=== PATIENT | male | born 1950 | race Caucasian/White ===

== ENCOUNTER → 2020-11-01 | Outpatient (CLI) | payer OTHER | LOC: MRI 10:36 | PROVIDERS: ATTEND Registered Nurse | DX: Z01.89 Encounter for other specified special examinations (principal); M25.512 Pain in left shoulder ==

== ENCOUNTER 2021-01-24 09:55 | Inpatient (IN) | payer MEDICARE, OTHER ==
[~2021-01-24] VITALS: Ht 177.8 cm; Wt 95.3 kg
[2021-01-24] MEDS ORDERED: KETOROLAC TROMETHAMINE 30 MG/ML VIAL ONE (10:33)
[2021-01-24] MEDS ORDERED: KETOROLAC TROMETHAMINE 30 MG/ML VIAL IM ONE (11:00)
[2021-01-24] MEDS ORDERED: DIAZEPAM 5 MG TAB PO ONE ×2 (11:00→13:00)
[2021-01-24] MEDS ORDERED: HYDROCODONE/APAP 7.5MG-325MG 1 EA TAB PO ONE (11:00)
[2021-01-24 13:12] LABS: BASOPHILS # (AUTO) 0.1 (0.0-0.1); BASOPHILS % 0.7 % (0.0-1.0); EOSINOPHILS # (AUTO) 0.1 (0.0-0.4); EOSINOPHILS % 0.9 % (0.0-6.0); HEMATOCRIT 45.8 % (38.2-49.6); HEMOGLOBIN 14.7 g/dL (14.0-18.0); LYMPHOCYTES % 23.5 % (18.0-39.1); MEAN CORPUSCULAR HEMOGLOBIN 29.9 pg (28-32); MEAN CORPUSCULAR HGB CONC 32.1 g/dL (31-35); MEAN CORPUSCULAR VOLUME 93.1 fL (81-99); MONOCYTES # (AUTO) 0.8 (0.2-0.8); MONOCYTES % 9.7 % (4.4-11.3); NEUTROPHILS # (AUTO) 5.5 (2.1-6.9); NEUTROPHILS % 64.3 % (38.7-80.0); PLATELET COUNT 142 x10e3/uL (140-360); RED BLOOD COUNT 4.92 x10e6/uL (4.3-5.7); RED CELL DISTRIBUTION WIDTH 15.3 % (11.7-14.4)
[2021-01-24 13:22] LABS: INR 1.02; PROTHROMBIN TIME 13.6 seconds (11.9-14.5)
[2021-01-24 13:23] LABS: PARTIAL THROMBOPLASTIN TIME 28.2 seconds (23.8-35.5)
[2021-01-24 13:29] LABS: ALBUMIN 4.1 g/dL (3.5-5.0); ALBUMIN/GLOBULIN RATIO 1.3 (0.8-2.0); ANION GAP 15.2 mmol/L (8-16); CALCIUM 9.1 mg/dL (8.4-10.2); CREATININE, SERUM 1.15 mg/dL (0.72-1.25); POTASSIUM 4.2 mmol/L (3.5-5.1)
[2021-01-24 15:20] VITALS: BP 156/78
[2021-01-24] MEDS ORDERED: FERROUS SULFAT324 MG PO (16:38)
[2021-01-24] MEDS ORDERED: PRESERVISION A1 EACH PO (16:38)
[2021-01-24] MEDS ORDERED: AMLODIPINE BESYL5 MG PO (16:38)
[2021-01-24] MEDS ORDERED: ALLOPURINOL100 MG PO (16:38)
[2021-01-24] MEDS ORDERED: ATORVASTATIN CA10 MG PO (16:38)
[2021-01-24] MEDS ORDERED: OMEPRAZOLE40 MG PO (16:38)
[2021-01-24] MEDS ORDERED: FLOMAX0.4 MG PO (16:38)
[2021-01-24] MEDS ORDERED: CETIRIZINE HCL10 MG PO (16:38)
[2021-01-24] MEDS: SODIUM CHLORIDE 0.9% 1000ML 1,000 ML IV SCH (16:41)
[2021-01-24] MEDS: ONDANSETRON HCL INJ 2MG/ML 2ML 2 MG/ML VIAL IV PRN (18:18)
[2021-01-24] MEDS: Morphine 4mg Syringe 4 MG/ML INJ IV PRN (18:18)
[2021-01-24 20:00] VITALS: BP 138/84
[2021-01-24 20:15] VITALS: BP 138/84
[2021-01-24] MEDS: LACTULOSE SYRUP 20 GM/30 ML UDC PO PRN (21:38)
[2021-01-24] MEDS ORDERED: AMLODIPINE BESYLATE 5 MG TAB PO PRN (23:30)
[2021-01-25] VITALS (8 sets, daily range): BP systolic 122–150; BP diastolic 68–89
[2021-01-25] MEDS: SODIUM CHLORIDE 0.9% 1000ML 1,000 ML IV SCH ×4 (01:00→20:04)
[2021-01-25 05:44] LABS: BASOPHILS % 0.5 % (0.0-1.0); EOSINOPHILS # (AUTO) 0.1 (0.0-0.4); EOSINOPHILS % 0.9 % (0.0-6.0); HEMATOCRIT 41.3 % (38.2-49.6); LYMPHOCYTES # (AUTO) 1.4 (1.0-3.2); LYMPHOCYTES % 21.4 % (18.0-39.1); MEAN CORPUSCULAR HEMOGLOBIN 30.1 pg (28-32); MEAN CORPUSCULAR HGB CONC 31.5 g/dL (31-35); MEAN CORPUSCULAR VOLUME 95.6 fL (81-99); MONOCYTES # (AUTO) 0.7 (0.2-0.8); MONOCYTES % 11.1 % (4.4-11.3); NEUTROPHILS # (AUTO) 4.1 (2.1-6.9); NEUTROPHILS % 65.5 % (38.7-80.0); PLATELET COUNT 108 x10e3/uL (140-360); RED BLOOD COUNT 4.32 x10e6/uL (4.3-5.7); RED CELL DISTRIBUTION WIDTH 15.1 % (11.7-14.4)
[2021-01-25 06:12] LABS: ALBUMIN 3.5 g/dL (3.5-5.0); ALBUMIN/GLOBULIN RATIO 1.5 (0.8-2.0); ANION GAP 13.1 mmol/L (8-16); CALCIUM 8.3 mg/dL (8.4-10.2); CHOL/HDL RATIO 4.4 (3.9-4.7); CHOLESTEROL 114 MD/DL (0-199); CREATININE, SERUM 0.95 mg/dL (0.72-1.25); HDL CHOLESTEROL 26 MG/DL (40-60); POTASSIUM 4.1 mmol/L (3.5-5.1); TRIGLYCERIDES 421 MG/DL (0-149)
[2021-01-25 06:32] LABS: THYROID STIMULATING HORMONE 2.349 uIU/mL (0.350-4.940)
[2021-01-25] MEDS: TAMSULOSIN HCL 0.4 MG CAP PO SCH (07:37)
[2021-01-25] MEDS: PANTOPRAZOLE SOD 40 MG TABEC PO SCH (07:37)
[2021-01-25] MEDS: Morphine 4mg Syringe 4 MG/ML INJ IV PRN ×4 (07:37→22:39)
[2021-01-25] MEDS: ONDANSETRON HCL INJ 2MG/ML 2ML 2 MG/ML VIAL IV PRN ×3 (07:37→18:23)
[2021-01-25] MEDS: LACTULOSE SYRUP 20 GM/30 ML UDC PO PRN (10:54)
[2021-01-25] MEDS ORDERED: BISACODYL 10 MG SUPP PR PRN (14:00)
[2021-01-25] MEDS ORDERED: HYDRALAZINE HCL 20 MG/ML VIAL IV PRN (14:00)
[2021-01-25] MEDS ORDERED: ACETAMINOPHEN 325 MG TAB PO PRN (14:45)
[2021-01-25] MEDS: DOCUSATE SODIUM LIQD 100 MG/10 ML UDC NG SCH (16:52)
[2021-01-25] MEDS: ATORVASTATIN 10 MG TAB PO SCH (20:04)
[2021-01-26] VITALS (8 sets, daily range): BP systolic 119–154; BP diastolic 59–101
[2021-01-26 05:43] LABS: BASOPHILS % 0.5 % (0.0-1.0); EOSINOPHILS # (AUTO) 0.1 (0.0-0.4); EOSINOPHILS % 1.5 % (0.0-6.0); HEMATOCRIT 39.8 % (38.2-49.6); HEMOGLOBIN 12.8 g/dL (14.0-18.0); LYMPHOCYTES # (AUTO) 1.3 (1.0-3.2); LYMPHOCYTES % 22.3 % (18.0-39.1); MEAN CORPUSCULAR HEMOGLOBIN 29.8 pg (28-32); MEAN CORPUSCULAR HGB CONC 32.2 g/dL (31-35); MEAN CORPUSCULAR VOLUME 92.6 fL (81-99); MONOCYTES # (AUTO) 0.6 (0.2-0.8); MONOCYTES % 10.5 % (4.4-11.3); NEUTROPHILS # (AUTO) 3.8 (2.1-6.9); NEUTROPHILS % 64.7 % (38.7-80.0); PLATELET COUNT 104 x10e3/uL (140-360); RED CELL DISTRIBUTION WIDTH 14.9 % (11.7-14.4)
[2021-01-26 06:12] LABS: INR 0.98; PARTIAL THROMBOPLASTIN TIME 30.8 seconds (23.8-35.5); PROTHROMBIN TIME 13.2 seconds (11.9-14.5)
[2021-01-26 06:30] LABS: ALBUMIN 3.5 g/dL (3.5-5.0); ALBUMIN/GLOBULIN RATIO 1.4 (0.8-2.0); ANION GAP 12.9 mmol/L (8-16); CALCIUM 8.3 mg/dL (8.4-10.2); CREATININE, SERUM 0.98 mg/dL (0.72-1.25); POTASSIUM 3.9 mmol/L (3.5-5.1)
[2021-01-26] MEDS: PANTOPRAZOLE SOD 40 MG TABEC PO SCH (07:30)
[2021-01-26] MEDS: Morphine 4mg Syringe 4 MG/ML INJ IV PRN ×3 (07:50→22:39)
[2021-01-26] MEDS: ONDANSETRON HCL INJ 2MG/ML 2ML 2 MG/ML VIAL IV PRN ×3 (07:50→22:39)
[2021-01-26] MEDS: SODIUM CHLORIDE 0.9% 1000ML 1,000 ML IV SCH ×2 (07:50→15:45)
[2021-01-26] MEDS: TAMSULOSIN HCL 0.4 MG CAP PO SCH (09:00)
[2021-01-26] MEDS: ALLOPURINOL 100 MG TAB PO SCH (09:00)
[2021-01-26] MEDS: LORATADINE 10 MG TAB PO SCH (09:00)
[2021-01-26] MEDS: DOCUSATE SODIUM LIQD 100 MG/10 ML UDC NG SCH ×2 (09:00→16:42)
[2021-01-26] MEDS: FERROUS SULFATE 325 MG TAB PO SCH (09:00)
[2021-01-26] MEDS ORDERED: LIDOCAINE HCL 1% LOCAL INJ 20 ML VIAL ONE (12:36)
[2021-01-26] MEDS ORDERED: FENTANYL CITRATE/PF 100MCG/2 ML INJ ONE (13:42)
[2021-01-26] MEDS: ATORVASTATIN 10 MG TAB PO SCH (20:20)
[2021-01-26] MEDS: ENOXAPARIN 30 MG/0.3 ML SYR SC SCH (21:00)
[2021-01-27] VITALS: BP 139/97
[2021-01-27 04:00] VITALS: BP 111/74
[2021-01-27 06:34] LABS: BASOPHILS % 0.1 % (0.0-1.0); HEMATOCRIT 39.2 % (38.2-49.6); LYMPHOCYTES % 12.5 % (18.0-39.1); MEAN CORPUSCULAR HGB CONC 33.2 g/dL (31-35); MEAN CORPUSCULAR VOLUME 90.5 fL (81-99); MONOCYTES # (AUTO) 0.6 (0.2-0.8); MONOCYTES % 7.3 % (4.4-11.3); NEUTROPHILS # (AUTO) 6.2 (2.1-6.9); PLATELET COUNT 121 x10e3/uL (140-360); RED BLOOD COUNT 4.33 x10e6/uL (4.3-5.7); RED CELL DISTRIBUTION WIDTH 14.8 % (11.7-14.4)
[2021-01-27 06:58] LABS: ANION GAP 15.6 mmol/L (8-16); CALCIUM 8.9 mg/dL (8.4-10.2); CREATININE, SERUM 1.19 mg/dL (0.72-1.25); POTASSIUM 4.6 mmol/L (3.5-5.1)
[2021-01-27 07:58] VITALS: BP 131/89
[2021-01-27] MEDS: PANTOPRAZOLE SOD 40 MG TABEC PO SCH (08:22)
[2021-01-27] MEDS: TAMSULOSIN HCL 0.4 MG CAP PO SCH (08:28)
[2021-01-27] MEDS: LORATADINE 10 MG TAB PO SCH (08:28)
[2021-01-27] MEDS: DOCUSATE SODIUM LIQD 100 MG/10 ML UDC NG SCH (08:28)
[2021-01-27] MEDS: FERROUS SULFATE 325 MG TAB PO SCH (08:28)
[2021-01-27] MEDS: ENOXAPARIN 30 MG/0.3 ML SYR SC SCH (08:28)
[2021-01-27] MEDS: ALLOPURINOL 100 MG TAB PO SCH (08:29)
[2021-01-27 09:29] VITALS: BP 131/89
[2021-01-27 09:32] VITALS: BP 131/89
[2021-01-27 15:23] VITALS: BP 140/86
[2021-01-27] MEDS ORDERED: LIDOCAINE HCL 2% LOCAL INJ 5 ML SDV VIAL INJ ONE (15:39)
[2021-01-27] MEDS ORDERED: PROPOFOL IV EMULSION 10 MG/ML 20 ML VIAL IV ONE (15:39)
[2021-01-27] MEDS ORDERED: ONDANSETRON HCL INJ 2MG/ML 2ML 2 MG/ML VIAL IV ONE (15:39)
[2021-01-27] MEDS ORDERED: POVIDONE IODINE 0.05% 0.05 % ML PO ONE (15:39)
[2021-01-27] MEDS ORDERED: SUCCINYLCHOLINE CHLORIDE 20 MG/ML 10ML VIAL IV ONE (15:39)
[2021-01-27] MEDS ORDERED: DEXAMETHASONE SOD PHOS INJ 4 MG/ML SDV IV ONE (15:39)
== END 2021-01-27 15:40 | disposition home or self-care (01) | DRG 517 ==
LOC: ER 10:15 → ERHOLD 14:59 → MED/SURG 15:20
PROVIDERS: ADMIT Internal Medicine; ATTEND Internal Medicine
PROC: XNU0356 Supplement Lumbar Vertebra with Mechanically Expandable (Paired) Synthetic Substitute, Percutaneous Approach, New Technology Group 6 (ICD-10-PCS; principal; 2021-01-24)
DX: S32.019A Unspecified fracture of first lumbar vertebra, initial encounter for closed fracture (principal); W01.0XXA Fall on same level from slipping, tripping and stumbling without subsequent striking against object, initial encounter; I10 Essential (primary) hypertension; Z20.822 Contact with and (suspected) exposure to COVID-19; K21.9 Gastro-esophageal reflux disease without esophagitis; K27.9 Peptic ulcer, site unspecified, unspecified as acute or chronic, without hemorrhage or perforation; M48.07 Spinal stenosis, lumbosacral region
CPT/HCPCS: 22514; 36415; 71046; 72131; 74470; 80048; 80053; 80061; 83036; 84443; 85025; 85610; 85730; 93005; 99251; 99284; J0330; J0360; J0690; J1100; J1650; J1885; J2001; J2270; J2405; J3010; J7030; U0002

== ENCOUNTER → 2024-05-05 | Day surgery (SDC) | payer MEDICARE, OTHER ==
[~2024-05-05] MED LIST: ALLOPURINOL100 MG PO; AMLODIPINE BESYL5 MG PO; ASPIRIN81 MG PO; ATORVASTATIN CA10 MG PO; CETIRIZINE HCL10 MG PO; FAMOTIDINE 20 MG/2 ML VIAL IV ONE; FENTANYL CITRATE/PF 100MCG/2 ML INJ ONE; FERROUS SULFAT324 MG PO; FLOMAX0.4 MG PO; GLYCOPYRROLATE INJ 0.2 MG/ML VIAL ONE; JARDIANCE25 MG PO; METOCLOPRAMIDE HCL 10 MG/2ML VIAL ONE; OMEPRAZOLE40 MG PO; ONDANSETRON HCL INJ 2MG/ML 2ML 2 MG/ML VIAL ONE; PRESERVISION A1 EACH PO; PROPOFOL IV EMULSION 10 MG/ML 20 ML VIAL ONE; PROPOFOL IV EMULSION 50 ML IV ONE; VITAMIN B-121000 MCG PO; VITAMIN D310 MCG PO
[2024-05-05] MEDS: LACTATED RINGER'S 1,000 ML ONE (09:47)
[2024-05-05 14:05] VITALS: BP 95/61; PULSE 85; RESP 16; O2SAT 97
== END | disposition home or self-care (01) ==
LOC: OR 09:05
PROVIDERS: ATTEND Internal Medicine Gastroenterology
DX: K29.50 Unspecified chronic gastritis without bleeding (principal); K63.5 Polyp of colon; K25.9 Gastric ulcer, unspecified as acute or chronic, without hemorrhage or perforation; K20.90 Esophagitis, unspecified without bleeding; K21.9 Gastro-esophageal reflux disease without esophagitis; K57.30 Diverticulosis of large intestine without perforation or abscess without bleeding; K64.8 Other hemorrhoids; I10 Essential (primary) hypertension; E78.5 Hyperlipidemia, unspecified; E11.9 Type 2 diabetes mellitus without complications; Z01.810 Encounter for preprocedural cardiovascular examination; Z79.82 Long term (current) use of aspirin; Z79.84 Long term (current) use of oral hypoglycemic drugs; Z79.899 Other long term (current) drug therapy; Z86.19 Personal history of other infectious and parasitic diseases; Z87.891 Personal history of nicotine dependence
CPT/HCPCS: 43239; 45385; 88305; 88342; 93005; J2405; J2470; J2704 ×2; J2765; J3010; J7121; 45378